=== PATIENT | male | born 1955 | race Caucasian/White ===

== ENCOUNTER 2021-03-23 07:01 | Day surgery (SDC) | payer BC, OTHER ==
[2021-03-21 14:30] VITALS: BMI 27.5
[2021-03-23] MEDS ORDERED: LIDOCAINE HCL/PF 2% SDV 5ML VIAL ONE (07:33)
[2021-03-23] MEDS ORDERED: PROPOFOL 20 ML ONE ×4 (07:33)
[2021-03-23 10:43] VITALS: BP 130/63; PULSE 63; TEMP 97.8
== END 2021-03-23 09:15 | disposition home or self-care (01) ==
LOC: FASU-ENDO 07:01
PROVIDERS: ATTEND Internal Medicine Gastroenterology
PROC: 0DBM8ZZ Excision of Descending Colon, Via Natural or Artificial Opening Endoscopic (ICD-10-PCS; 2021-03-23)
PROC: 0DBK8ZX Excision of Ascending Colon, Via Natural or Artificial Opening Endoscopic, Diagnostic (ICD-10-PCS; principal; 2021-03-23 08:12)
DX: Z12.11 Encounter for screening for malignant neoplasm of colon (principal); D12.2 Benign neoplasm of ascending colon; D12.4 Benign neoplasm of descending colon
CPT/HCPCS: 88305-TC

== ENCOUNTER 2023-12-06 07:29 | Day surgery (SDC) | payer OTHER, MEDICARE ==
[2023-12-05 15:30] VITALS: BMI 25.0
[2023-12-06 07:45] VITALS: PULSE 58
[2023-12-06 08:37] VITALS: BP 132/78; RESP 18; TEMP 97.4
== END 2023-12-06 08:49 | disposition home or self-care (01) ==
LOC: FASU-ENDO 07:29
PROVIDERS: ATTEND Internal Medicine Gastroenterology
PROC: 0DBN8ZX Excision of Sigmoid Colon, Via Natural or Artificial Opening Endoscopic, Diagnostic (ICD-10-PCS; 2023-12-06)
PROC: 0DBP8ZX Excision of Rectum, Via Natural or Artificial Opening Endoscopic, Diagnostic (ICD-10-PCS; principal; 2023-12-06 08:18)
DX: D12.8 Benign neoplasm of rectum (principal); K63.89 Other specified diseases of intestine
CPT/HCPCS: 88305-TC